=== PATIENT | male | born 1930 | race Caucasian/White ===

== ENCOUNTER 2018-06-16 22:46 | Emergency (ER) | payer MEDICARE ==
--- NOTE | 2018-06-17 00:59 | XR ---
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 There are nondisplaced fractures of the tuft of the distal phalanx of the middle finger and ring finger. There is spurring at the IP joints. Metacarpals are intact. IMPRESSION: Osteoarthritis. Nondisplaced tuft fractures as above.
[2018-06-17] MEDS ORDERED: ceFAZolin 1,000 MG VIAL IM STA (01:02)
--- NOTE | 2018-06-17 01:09 | ED ---
Upper Extremity HPI - General Chief Complaint: Extremity Injury, Upper Stated Complaint: Finger lac Time Seen by Provider: 06/17/18 00:15 Source: patient, RN notes reviewed, old records reviewed Mode of arrival: ambulatory Limitations: no limitations - History of Present Illness Initial Comments: Patient is an 87-year-old male chief complaint of left third and fourth distal finger Lacerations. He reports he was using a router tool to make a banister for latter-day. Patient reports has full range motion fingers. Reports the laceration occurred this afternoon. He states that the laceration is continue to bleed so he felt like he needed to be evaluated. His tetanus is up-to-date. He denies any other symptoms at this time. - Related Data Home Medications Medication Instructions Recorded Confirmed Atorvastatin [Lipitor] 80 mg PO HS 06/16/18 06/16/18 Finasteride [Proscar] 5 mg PO DAILY 06/16/18 06/16/18 Hydrochlorothiazide 25 mg PO 06/16/18 Metoprolol Tartrate [Lopressor] 75 mg PO 06/16/18 Minoxidil 10 mg PO 06/16/18 Potassium Chloride [Klor-Con 10] 10 meq PO 06/16/18 Tamsulosin HCl [Flomax] 0.4 mg PO 06/16/18 06/16/18 Previous Rx's Medication Instructions Recorded Acetaminophen with Codeine 1 tab PO Q6H PRN 3 Days #12 tab 06/17/18 [Tylenol w/codeine #3] Cephalexin [Keflex] 500 mg PO Q6H #40 cap 06/17/18 Allergies Allergy/AdvReac Type Severity Reaction Status Date / Time No Known Allergies Allergy Verified 06/16/18 23:17 Review of Systems ROS Statement: Those systems with pertinent positive or pertinent negative responses have been documented in the HPI. ROS Other: All systems not noted in ROS Statement are negative. Past Medical History Past Medical History: Hyperlipidemia, Hypertension History of Any Multi-Drug Resistant Organisms: None Reported Past Surgical History: Appendectomy Past Psychological History: No Psychological Hx Reported Smoking Status: Never smoker Past Alcohol Use History: None Reported Past Drug Use History: None Reported General Exam - General Exam Comments Initial Comments: 87-year-old male. Alert and oriented. No distress. Limitations: no limitations General appearance: alert, in no apparent distress Head exam: Present: atraumatic, normocephalic, normal inspection Eye exam: Present: normal appearance, PERRL, EOMI. Absent: scleral icterus, conjunctival injection, periorbital swelling ENT exam: Present: normal exam, mucous membranes moist Neck exam: Present: normal inspection. Absent: tenderness, meningismus, lymphadenopathy Respiratory exam: Present: normal lung sounds bilaterally. Absent: respiratory distress, wheezes, rales, rhonchi, stridor Cardiovascular Exam: Present: regular rate, normal rhythm, normal heart sounds. Absent: systolic murmur, diastolic murmur, rubs, gallop, clicks GI/Abdominal exam: Present: soft, normal bowel sounds. Absent: distended, tenderness, guarding, rebound, rigid Extremities exam: Present: normal inspection, full ROM, normal capillary refill. Absent: tenderness, pedal edema, joint swelling, calf tenderness Left Upper Arm exam: Present: normal inspection, full ROM Elbow exam: Present: normal inspection, full ROM Forearm Wrist exam: Present: normal inspection, full ROM Hand Wrist exam: Present: full ROM, laceration. Absent: normal inspection ( Patient has lacerations over the distal third and fourth finger involving the nailbed.) Hand L/R Back: 1 - 2cm irregular lacerations, involving distal nailbed 2 - 1cm irreglular laceration involving distal nailbed Vascular: Present: normal capillary refill Back exam: Present: normal inspection Neurological exam: Present: alert, oriented X3, CN II-XII intact Psychiatric exam: Present: normal affect, normal mood Skin exam: Present: warm, dry, intact, normal color. Absent: rash Course Vital Signs 06/16/18 06/17/18 23:12 02:44 Temperature 97.9 F 97.7 F Pulse Rate 61 84 Respiratory 20 16 Rate Blood Pressure 176/99 185/112 O2 Sat by Pulse 96 96 Oximetry Medical Decision Making - Medical Decision Making Patient is an 87-year-old male with a laceration over the distal left third and fourth finger from a router tool while doing woodwork. His tetanus is up-to- date. X-ray does show evidence of distal tuft fractures of both fingers. Wounds were thoroughly irrigated with saline and Betadine. Patient was given 2 g of IM Kefzol for open fracture. Wounds were closed with sutures to the best my ability in the distal nail bed was removed. Patient has been advised via [facility] prompt follow-up with orthopedic hand specialist. Given referral for Dr. Gorman. Given a short course of pain medicine and a prescription for Keflex. All questions answered return parameters were discussed. Fingers were wrapped in tube gauze and advised the Patient keep to bug gauze on until following up with [facility]. - Radiology Data Radiology results: report reviewed Os or arthritis. There is nondisplaced test fractures over the middle and ring finger. Disposition Clinical Impression: Open fracture of tuft of distal phalanx of finger Disposition: HOME SELF-CARE Condition: Good Instructions: Finger Fracture (ED) Additional Instructions: Patient advised to take pain medicine and follow-up with the orthopedic hand specialist. Call them tomorrow and schedule appointment. Keep the fingers wrapped in tube gauze dressing. Return to the emergency department if any alarming signs or symptoms occur. Prescriptions: Acetaminophen with Codeine [Tylenol w/codeine #3] 1 tab PO Q6H PRN 3 Days #12 tab PRN Reason: Pain Cephalexin [Keflex] 500 mg PO Q6H #40 cap Is patient prescribed a controlled substance at d/c from ED?: No Referrals: Nonstaff,Physician [Primary Care Provider] - 1-2 days Sly Gorman DO [Doctor of Osteopathic Medicine] - 1-2 days Time of Disposition: 02:27
[2018-06-17] MEDS ORDERED: LIDOCAINE 1% INJ 10MG/ML (20 ML MDV) SQ STA (01:43)
[2018-06-17 02:46] VITALS: BP 185/112; PULSE 84; RESP 16; TEMP 97.7
== END 2018-06-17 02:40 | disposition home or self-care (01) ==
LOC: EC 22:46
DX: S62.663B Nondisplaced fracture of distal phalanx of left middle finger, initial encounter for open fracture (principal); S62.665B Nondisplaced fracture of distal phalanx of left ring finger, initial encounter for open fracture; S61.213A Laceration without foreign body of left middle finger without damage to nail, initial encounter; S61.215A Laceration without foreign body of left ring finger without damage to nail, initial encounter; E78.5 Hyperlipidemia, unspecified; I10 Essential (primary) hypertension; Z79.899 Other long term (current) drug therapy; W27.8XXA Contact with other nonpowered hand tool, initial encounter; Y93.89 Activity, other specified
CPT/HCPCS: 99283; 12002; 96372; 73120; J0690; J2001